=== PATIENT | male | born 1985 | race Caucasian/White ===

== ENCOUNTER 2020-02-28 10:12 | Emergency (ER) | payer OTHER, SELFPAY ==
--- NOTE | ~2020-02-28 | XR_ITS ---
XR chest 1V portable DATE: 02/28/2020 12:24 INDICATION: Congestion. Headache. TECHNIQUE: Portable upright AP chest on 02/28/2020 at 1220 hours COMPARISON: None FINDINGS: Normal heart size. No hilar or mediastinal enlargement. No pulmonary infiltrate or consolid ation, pleural effusion or pulmonary vascular congestion or pneumothorax. IMPRESSION: No active cardiopulmonary disease Reviewed, dictated and finalized at location [facility]. [employer]ENTIVE SELECTOR
--- NOTE | ~2020-02-28 | CT_ITS ---
EXAMINATION: CT brain wo con DATE: 02/28/2020 11:40 INDICATION: Persistent posterior right-sided headache TECHNIQUE: Computed tomography (CT) of the head was performed without intravenous contrast. The mA wa s adjusted according to patient size. Iterative reconstruction technique was employed. Exam dose: 60 5.33 mGy-cm total exam DLP. COMPARISON: None FINDINGS: No intracranial mass lesion or hemorrhage or cerebrovascular accident. Normal ventricular s ize. No midline shift or mass effect. Normal bahena-white matter differentiation. No subdural or epidur al hematoma. No orbital mass lesion is detected. No fracture or bone destruction of the cranial vault. The mastoid air cells and included paranasal sinuses are normally developed and aerated. IMPRESSION: Negative examination Reviewed, dictated and finalized at [facility]. Reviewed, dictated and finalized at location B. [employer] IMPRESSION: Negative examination
[2020-02-28 10:22] VITALS: BP 168/108; PULSE 83; RESP 16; TEMP 36.9; O2SAT 100
[2020-02-28 11:12] VITALS: BP 149/104; PULSE 74; RESP 18; O2SAT 97
[2020-02-28 11:55] VITALS: BP 136/92; PULSE 68; RESP 17; O2SAT 98
[2020-02-28 12:03] LABS: Basophils Percent Auto 0.4 % (0.2-1.2); Eosinophils Percent Auto 0.8 % (0-4.4); Hematocrit 45.3 % (42.0-52.0); Hemoglobin 15.9 g/dL (14.0-18.0); Immature Granulocyte Absolute 0.01 K/mm3 (0.00-0.031); Immature Granulocyte Percent A 0.2 % (0-0.5); Lymphocytes Absolute Auto 0.82 K/mm3 (0.9-3.2); Lymphocytes Percent Auto 17.3 % (18.3-44.2); Mean Corpuscular HGB Conc 35.1 g/dl (32-36); Mean Corpuscular Hemoglobin 32.7 pg (26-34); Mean Corpuscular Volume 93.2 fl (80-100); Mean Platelet Volume 8.9 fl (7.4-10.4); Monocytes Absolute Auto 0.5 K/mm3 (0.1-0.6); Monocytes Percent Auto 10.1 % (2.6-8.5); Neutrophils Absolute Auto 3.4 K/mm3 (1.3-6.7); Neutrophils Percent Auto 71.2 % (45.5-73.1); Platelet Count Result 243 k/mm3 (150-375); Red Blood Count 4.86 M/mm3 (4.6-6.20); Red Cell Distribution Width 11.5 % (11.5-14.5); White Blood Count 4.7 K/mm3 (4.5-10.0)
[2020-02-28 12:14] LABS: Alanine Aminotransferase 55 U/L (4-50); Albumin Level 4.5 g/dL (3.5-5.1); Alkaline Phosphatase 61 U/L (38-126); Anion Gap 5 mmol/L (8-16); Aspartate Amino Transferase 47 U/L (17-59); Bilirubin,Total 0.6 mg/dL (0.2-1.3); Blood Urea Nitrogen 9 mg/dL (9-20); Calcium 9.9 mg/dL (8.4-10.2); Carbon Dioxide 34 mmol/L (22-30); Chloride 100 mmol/L (98-107); Estimated CRCL calculation 140 ml/min; Estimated Glomerular Filt Rate > 60; Glucose 100 mg/dL (75-110); Potassium 4.1 mmol/L (3.4-5.0); Sodium 139 mmol/L (137-145)
[2020-02-28] MEDS: ONDANSETRON INJ 4 MG/2 ML VIAL IV PUSH (12:39)
[2020-02-28] MEDS: KETOROLAC 15 MG/ML VIAL (*BKC) IV PUSH (12:39)
[2020-02-28] MEDS: SODIUM CHLORIDE 0.9% IV 50 ML 100 ML (13:15)
[2020-02-28] MEDS: DEXAMETHASONE SOD PHOS INJ 4 MG/ML VIAL 10 MG IV PUSH (13:15)
[2020-02-28] MEDS: diphenhydrAMINE HCl INJ 50 MG/ML VIAL 25 MG IV PUSH (13:15)
[2020-02-28 13:32] LABS: CRP < 0.5 mg/dL (<1.0)
[2020-02-28 14:40] VITALS: BP 138/88; PULSE 68; RESP 18; O2SAT 99
--- NOTE | 2020-02-28 14:44 | ED.GENADULT ---
HPI - General Adult General Chief complaint: Headache Stated complaint: headache with aura Time Seen by Provider: 02/28/20 10:25 Source: patient Mode of arrival: ambulatory Limitations: no limitations History of Present Illness HPI narrative: Patient presents with chief complaint of right-sided headache that presented on Tuesday while he was doing a 20 mile run. Patient states that he had to stop and began to walk because he started seeing lightening but sensations that resolved after a few minutes. Patient states that he was able to walk the rest of the way home. He denies any nausea, vomiting, diarrhea, changes in motor function or sensation. Patient states he does not typically have headaches and has not had one in 10 to 15 years but when he has in the past they normally resolve with Tylenol or ibuprofen. Patient states his headache has not improved with Tylenol or ibuprofen so when he called his primary care they instructed him to present to the emergency department for further evaluation. Patient denies fever, chills, no neck stiffness, no head injury, no loss of vision or hearing. He reports he has been very anxious about having the headache and what could be the potential cause so he has not been sleeping the last few nights as he sometimes struggles with anxiety and fixation. Related Data Home Medications Medication Instructions Recorded Confirmed lisinopril 5 mg PO DAILY 02/28/20 Allergies Allergy/AdvReac Type Severity Reaction Status Date / Time No Known Allergies Allergy Verified 02/28/20 10:27 Review of Systems Review of Systems: Narrative: CONSTITUTIONAL: Denies fever, chills, or sweats. EYES: Denies visual changes, redness, or discharge. ENT: Denies rhinorrhea, congestion, sore throat, or otalgia. CARDIOVASCULAR: Denies chest pain, palpitations, or edema. RESPIRATORY: Denies cough or dyspnea. GASTROINTESTINAL: Denies abdominal pain, nausea, vomiting, or diarrhea. GENITOURINARY: Denies dysuria or hematuria. SKIN: Denies rash or itching. MUSCULOSKELETAL: Denies back pain, joint pain, or myalgia. NEUROLOGIC: Reports headache, denies numbness, dizziness, or weakness. PSYCHIATRIC: Reports anxiety Denies depression. [facility] Past Medical History Medical History (Updated 02/28/20 @ 14:50 by Naomi Eaton PA-C) No significant past medical history Social History Social History (Updated 02/28/20 @ 14:46 by EMELYN Doll Smoking status: Never smoker Alcohol use details: none Other substance usage details: none Exam Narrative: Exam Narrative: GENERAL: Well-appearing, well-nourished, and in no acute distress. HEAD: Normocephalic, atraumatic. EYES: PERRLA and EOMI. ENT: Bilateral TMs pearly bahena nonbulging. No hemotympanum NECK: Supple. No adenopathy or masses. No carotid bruits or JVD CHEST: Clear to auscultation. No respiratory distress. No wheezes rales or rhonchi HEART: Regular rate and rhythm. No murmur heard. Normal peripheral pulses. EXTREMITIES: Normal range of motion. No edema. SKIN: Warm, dry, no rash. NEURO: No focal deficits. Alert and oriented x3. Gait steady. PSYCH: Normal mood and affect. Course Vital Signs Vital signs: Vital Signs Temperature 98.4 F 02/28/20 10:22 Pulse Rate 83 02/28/20 10:22 Respiratory Rate 16 02/28/20 10:22 Blood Pressure 168/108 H 02/28/20 10:22 Pulse Oximetry 100 02/28/20 10:22 Temperature 98.4 F 02/28/20 10:22 Pulse Rate 68 02/28/20 11:55 Respiratory Rate 17 02/28/20 11:55 Blood Pressure 136/92 H 02/28/20 11:55 Pulse Oximetry 98 02/28/20 11:55 Medical Decision Making MDM Narrative Medical decision making narrative: Patient admits that he has been very stressed lately and is an anxious person. He states that he tends to hyper focus on things and that is what he has done with his headache and he has also been up not really sleeping for days which is likely not helping his headache. He has no neurologi
== END 2020-02-28 14:50 | disposition home or self-care (01) ==
PROVIDERS: Physician Assistant; Emergency Provider Emergency Medicine
DX: R51.9 Headache, unspecified (principal)
CPT/HCPCS: 36415; 70450; 71045; 80053; 85025; 86140; 96374; 96375; 99284; J0131; J1100; J1200; J1885; J2405

== ENCOUNTER 2020-03-01 09:57 | Outpatient (CLI) | payer OTHER, SELFPAY ==
--- NOTE | ~2020-03-01 | CT_ITS ---
EXAMINATION: CTA brain DATE: 03/01/2020 10:47 INDICATION: Right temporal headache. TECHNIQUE: Computed tomographic angiography (CTA) of the head was performed without and with 100 mL O mnipaque-350 intravenous contrast. The dose-length product was 1366.89 mGy-cm. Maximum intensity pro jection 3D reconstructions were created. Volume-rendered 3D reconstructions of the intracranial arter ies were created by the technologist on a separate workstation. COMPARISON: Head CT 02/28/2020 FINDINGS: There is no intracranial hemorrhage, acute infarction, or abnormal intracranial mass lesion . The ventricles are normal in size. There are mucous retention cysts in right maxillary sinus. The m astoid air cells are normal. The orbits are normal. Right vertebral artery is dominant. There is no s ignificant stenosis of basilar artery or the posterior cerebral arteries. The cervical internal carot id arteries are normal. There is no significant stenosis of the intracranial internal carotid arterie s or the anterior or middle cerebral arteries. Anterior communicating artery and the posterior commun icating arteries are normal. There is no aneurysm. IMPRESSION: 1. Normal brain. 2. No aneurysm or significant intracranial arterial stenosis. Reviewed, dictated and finalized at location A. [employer]
[2020-03-01 10:33] LABS: Estimated Glomerular Filt Rate > 60
== END 2020-03-01 09:58 | disposition home or self-care (01) ==
PROVIDERS: PCP Emergency Medicine; Visit Provider Emergency Medicine
DX: I10 Essential (primary) hypertension (principal); R51.9 Headache, unspecified
CPT/HCPCS: 70496; Q9967

== ENCOUNTER 2020-03-03 09:41 | Outpatient (CLI) | payer OTHER, SELFPAY ==
[2020-03-03 10:14] LABS: Rheumatoid Factor < 8.6 IU/ML (<12)
[2020-03-03 10:22] LABS: Erythrocyte Sedimentation Rate 8 mm/hr (0-20)
== END 2020-03-03 09:42 | disposition home or self-care (01) ==
PROVIDERS: PCP Emergency Medicine; Visit Provider Emergency Medicine
DX: R51.9 Headache, unspecified (principal)
CPT/HCPCS: 36415; 85652; 86038; 86430; 87635; C9803; U0003

== ENCOUNTER 2020-03-03 10:38 | Outpatient (NON) | payer OTHER, SELFPAY ==
[2020-03-03 22:00] LABS: SARS-CoV-2 RNA PCR Negative
== END 2020-03-03 10:39 ==
PROVIDERS: PCP Emergency Medicine; Visit Provider Emergency Medicine
DX: R68.89 Other general symptoms and signs (principal); Z20.828 Contact with and (suspected) exposure to other viral communicable diseases
CPT/HCPCS: 87635; C9803; U0003